=== PATIENT | female | born 1940 | race Caucasian/White ===

== ENCOUNTER 2021-11-16 18:32 | Emergency (ER) | payer MEDICARE ==
[~2021-11-16] VITALS: Ht 147.3 cm; Wt 49.9 kg
[2021-11-16 18:43] VITALS: BP_SYST 115
[2021-11-16] MEDS ORDERED: NIRM1TAB PO (19:08)
[2021-11-16 19:25] VITALS: BP_SYST 115
== END 2021-11-16 19:25 | disposition home or self-care (01) ==
LOC: SED 18:32
DX: U07.1 COVID-19 (principal); R05.9 Cough, unspecified; E11.9 Type 2 diabetes mellitus without complications; I10 Essential (primary) hypertension; Z85.3 Personal history of malignant neoplasm of breast
CPT/HCPCS: 99283